=== PATIENT | female | born 1940 | race Caucasian/White ===

== ENCOUNTER → 2024-05-03 | Outpatient (CLI) | payer BC, MEDICARE, SELFPAY ==
[2024-05-03 15:03] LABS: Free T4 (Free Thyroxine) 1.65 ng/dL (0.89-1.76); Thyroid Stimulating Hormone 4.05 uIU/mL (0.55-4.78)
== END | disposition home or self-care (01) ==
PROVIDERS: PCP Family Medicine; Referring Provider Family Medicine; Visit Provider Family Medicine
DX: E03.9 Hypothyroidism, unspecified (principal)
CPT/HCPCS: 36415; 84439; 84443

== ENCOUNTER → 2024-08-16 | Outpatient (CLI) | payer BC, MEDICARE, SELFPAY ==
--- NOTE | 2024-08-16 15:37 | XR_ITS ---
Examination: Shoulder,left, 3 views Technique: Shoulder AP internal rotation, AP external rotation, Y view shoulder, 3 views Exam date and time :August 16, 2024 1539 hours INDICATIONS: Shoulder pain months FINDINGS: Advanced osteoarthritis glenohumeral joint No shoulder fracture or dislocation IMPRESSION: Advanced osteoarthritis glenohumeral joint
== END | disposition home or self-care (01) ==
PROVIDERS: PCP Family Medicine; Referring Provider Family Medicine; Visit Provider Family Medicine
DX: M19.012 Primary osteoarthritis, left shoulder (principal)
CPT/HCPCS: 73030

== ENCOUNTER → 2024-11-22 | Outpatient (CLI) | payer BC, MEDICARE, SELFPAY ==
--- NOTE | 2024-11-22 12:01 | XR_ITS ---
MRI shoulder, left, without contrast. Date and time: November 22, 2024 1328 hours INDICATIONS: Left shoulder pain 2 years Technique: Multiple axial, sagittal and coronal sections of the shoulder have been obtained. Siemens high-resolution 1.5 [facility] MRI scanner is utilized. Axial fat-suppressed sections, TR 2350, TE 18 T2-weighted coronal fat-saturated images, TR 3500, TE 7100 T1-weighted coronal images, TR 500, TE 15 T2-weighted sagittal fat-saturated images, TR 3500, TE 57 T1-weighted sagittal sections, TR 504, TE 13. Findings: All of the images are severely degraded by continual patient motion IMPRESSION: All of the images are severely degraded by patient motion Consider repeat examination with IV conscious sedation
== END | disposition home or self-care (01) ==
PROVIDERS: PCP Family Medicine; Referring Provider Family Medicine; Visit Provider Family Medicine
DX: M25.512 Pain in left shoulder (principal)
CPT/HCPCS: 73221

== ENCOUNTER 2024-12-20 11:06 | Outpatient (CLI) | payer BC, MEDICARE, SELFPAY ==
[2024-12-18 16:10] VITALS: BMI 25.1
[2024-12-20 11:51] VITALS: BP 176/79; PULSE 68; RESP 21; TEMP 37.1; O2SAT 96
--- NOTE | 2024-12-20 12:00 | XR_ITS ---
MRI shoulder, left, without contrast. Date and time: December 20, 2024 1215 hours INDICATIONS: Generalized shoulder pain wrist injury 2.5 years ago Technique: Multiple axial, sagittal and coronal sections of the shoulder have been obtained. Siemens high-resolution 1.5 [facility] MRI scanner is utilized. Axial fat-suppressed sections, TR 2350, TE 18 T2-weighted coronal fat-saturated images, TR 3500, TE 7100 T1-weighted coronal images, TR 500, TE 15 T2-weighted sagittal fat-saturated images, TR 3500, TE 57 T1-weighted sagittal sections, TR 504, TE 13. Findings: Large greater than 4 cm full-thickness rotator cuff tear Subscapularis insertion is thickness tear. Subscapularis bursa is evident. Long head of the biceps is in the bicipital groove. No definite tear of the biceps superior labral anchor is seen. Retraction of the musculotendinous junction of the rotator cuff is evident Tendinosis pattern is moderate. Distance between the acromium and humeral head is 1 mm Atrophy of the supraspinatus muscle is severe. Atrophy of the infraspinatus muscle is severe. Sagittal sections demonstrate a horizontal acromion. Acromioclavicular joint demonstrates moderate osteoarthritis. Osacromiale is not identified. Anterior superior posterior inferior labral tears Advanced osteoarthritis glenohumeral joint. Bony glenoid fossa on the sagittal sections does not demonstrate osseous defect. Occult fracture or area of avascular necrosis is not seen. Acromioclavicular joint separation is not visible. Defect in the posterolateral margin of the humeral head is not seen Impression: Large full-thickness rotator cuff tears Anterior superior, posterior, inferior labral tears
[2024-12-20 12:24] VITALS: BP 153/67; PULSE 68; RESP 14; O2SAT 92
[2024-12-20 12:30] VITALS: BP 166/75; PULSE 87; RESP 14; O2SAT 96
[2024-12-20 12:35] VITALS: BP 152/74; PULSE 84; RESP 14; O2SAT 94
[2024-12-20 12:40] VITALS: BP 161/66; PULSE 71; RESP 14; O2SAT 92
[2024-12-20 12:44] VITALS: BP 159/76; PULSE 68; RESP 14; O2SAT 92
--- NOTE | 2024-12-20 14:37 | PC.NURSE ---
Addendum entered by Perla Melo RN 12/20/24 14:42: patient ambulated to bathroom and voided prior to discharge, also drank water with no nausea or vomiting Original Note: 1315 Patient is awake, alert, breathing unlabored, s/p MRI left shoulder, no sedation needed per dr sanchez, patient tolerated procedure well, IV removed, discharge instructions given, patient discharged home with all belongings including cane. No recovery needed since patient had no sedation. Patient could not find bilateral hearing aids earlier today, she found bilateral hearing aids inside patient's purse that was carrying for her. patient left home with bilateral hearing aids on.
== END 2024-12-20 13:15 | disposition home or self-care (01) ==
PROVIDERS: PCP Family Medicine; Referring Provider Family Medicine; Visit Provider Family Medicine
DX: S46.012A Strain of muscle(s) and tendon(s) of the rotator cuff of left shoulder, initial encounter (principal); S43.432A Superior glenoid labrum lesion of left shoulder, initial encounter; X58.XXXA Exposure to other specified factors, initial encounter
CPT/HCPCS: 73221

== ENCOUNTER → 2025-04-11 | Outpatient (CLI) | payer BC, MEDICARE, SELFPAY ==
[2025-04-11 13:05] LABS: Free T4 (Free Thyroxine) 1.75 ng/dL (0.89-1.76); Thyroid Stimulating Hormone 6.79 uIU/mL (0.55-4.78)
== END | disposition home or self-care (01) ==
PROVIDERS: PCP Family Medicine; Referring Provider Family Medicine; Visit Provider Family Medicine
DX: E03.9 Hypothyroidism, unspecified (principal)
CPT/HCPCS: 36415; 84439; 84443